=== PATIENT | female | born 1990 | race American Indian/Alaskan Native ===

== ENCOUNTER 2020-03-07 10:11 | Emergency (ER) | payer MEDICAID ==
[2020-03-07 10:22] VITALS: BP 127/80
[2020-03-07 10:49] LABS: Basophils % (Auto) 0.5 % (0.0-1.8); Eosinophils % (Auto) 0.5 % (0.0-4.3); Hematocrit 35.7 % (30.3-42.9); Hemoglobin 11.6 gm/dl (10.1-14.3); Lymphocytes # (Auto) 2.6 K/mm3 (1.2-5.4); Lymphocytes % (Auto) 31.4 % (13.4-35.0); Mean Corpuscular HGB Conc 33 % (30-34); Mean Corpuscular Volume 71 fl (79-97); Monocytes # (Auto) 0.6 K/mm3 (0.0-0.8); Monocytes % (Auto) 7.5 % (0.0-7.3); Platelet Count 220 K/mm3 (140-440); Red Blood Count 5.02 M/mm3 (3.65-5.03); Red Cell Distribution Width 15.7 % (13.2-15.2)
--- NOTE | 2020-03-07 14:08 | Ultrasound Report ---
ULTRASOUND OBSTETRIC INDICATION / CLINICAL INFORMATION: and vaginal bleeding. Clinical Gestational Age (GA): 15 weeks 1 day TECHNIQUE: Transabdominal. Transvaginal COMPARISON: None available. FINDINGS: There is a single intrauterine . Biparietal Diameter = 2.8 cm = 15 weeks, 0 day(s). Head Circumference = 10.6 cm = 15 weeks, 0 day(s). Abdominal Circumference = 8.7 cm = 15 weeks, 0 day(s). Femur Length = 1.7 cm = fifth weeks, 0 day(s). Average Ultrasound Age (AUA) = 15 weeks, 0 day(s). Heart Rate: 152 beats per minute. Estimated Weight in grams (if calculated): Not calculated Estimated Weight Growth Percentile (if calculated): Not calculated Position: cephalic. Cervix: closed. Length in cm (if measured): Not measured Placenta: posterior and free of the os. Amniotic Fluid Volume: Grossly normal Amniotic Fluid Index (BARBARA) in cm (if calculated): Not measured. Maternal Adnexa: No significant abnormality. IMPRESSION: 1. Single, living intrauterine with estimated sonographic age of 15 weeks, 0 day(s). 2. No significant sonographic abnormality. Signer Name: Gloria Ramirez MD Signed: 03/07/2020 2:04 PM Workstation Name: [employer]
--- NOTE | 2020-03-07 14:35 | Emergency Department Report ---
ED Female HPI - General Chief complaint: Vaginal Bleeding Stated complaint: VAG BLEEDING Time Seen by Provider: 03/07/20 12:25 Source: patient Mode of arrival: Ambulatory Limitations: No Limitations - History of Present Illness Initial comments: 30-year-old -Surinamese female presents emergency department complaining of vaginal spotting the entire first trimester reports and increase in intensity of bleeding earlier this morning associated with a vague pelvic cramping but no nausea vomiting, no chest pain palpitations, no fever chills or sweats. MD Complaint: vaginal bleeding Radiation: non-radiating Severity: mild Quality: dull Consistency: constant Improves with: none Worsens with: none Are you Now?: Yes Associated Symptoms: vaginal bleeding. denies: vaginal discharge, abdominal pain, nausea/vomiting, loss of appetite, dysuria, hematuria - Related Data Allergies Allergy/AdvReac Type Severity Reaction Status Date / Time No Known Allergies Allergy Unverified 03/07/20 10:20 ED Review of Systems ROS: Stated complaint: VAG BLEEDING Other details as noted in HPI Comment: All other systems reviewed and negative ED Past Medical Hx - Past Medical History Previous Medical History?: No - Surgical History Past Surgical History?: Yes Additional Surgical History: Fractured right ankle. - Social History Smoking Status: Never Smoker Substance Use Type: None ED Physical Exam - General Limitations: No Limitations General appearance: alert, in no apparent distress - Head Head exam: Present: atraumatic, normocephalic - Eye Eye exam: Present: normal appearance - ENT ENT exam: Present: mucous membranes moist - Neck Neck exam: Present: normal inspection - Respiratory Respiratory exam: Present: normal lung sounds bilaterally. Absent: respiratory distress - Cardiovascular Cardiovascular Exam: Present: regular rate, normal rhythm. Absent: systolic murmur, diastolic murmur, rubs, gallop - GI/Abdominal GI/Abdominal exam: Present: soft, normal bowel sounds - Extremities Exam Extremities exam: Present: normal inspection - Back Exam Back exam: Present: normal inspection - Neurological Exam Neurological exam: Present: alert, oriented X3 - Psychiatric Psychiatric exam: Present: normal affect, normal mood - Skin Skin exam: Present: warm, dry, intact, normal color. Absent: rash ED Course Vital Signs 03/07/20 10:21 Temperature 98.5 F Pulse Rate 114 H Respiratory 18 Rate Blood Pressure 127/80 O2 Sat by Pulse 99 Oximetry ED Medical Decision Making - Lab Data Result diagrams: 03/07/20 10:32 - Radiology Data Radiology results: report reviewed Findings [facility] [address] [place] [address] Ultrasound Report Signed Patient: ROGER MCELROY MR#: [id number] 500 : 1990 Acct:[id number] Age/Sex: 30 / F ADM Date: 03/07/20 Loc: ED Attending Dr: Ordering Physician: PATRICE GALLAGHER Date of Service: 03/07/20 Procedure(s): US OB transvaginal Accession Number(s): [id number] cc: PATRICE GALLAGHER ULTRASOUND OBSTETRIC INDICATION / CLINICAL INFORMATION: and vaginal bleeding. Clinical Gestational Age (GA): 15 weeks 1 day TECHNIQUE: Transabdominal. Transvaginal COMPARISON: None available. FINDINGS: There is a single intrauterine . Biparietal Diameter = 2.8 cm = 15 weeks, 0 day(s). Head Circumference = 10.6 cm = 15 weeks, 0 day(s). Abdominal Circumference = 8.7 cm = 15 weeks, 0 day(s). Femur Length = 1.7 cm = fifth weeks, 0 day(s). Average Ultrasound Age (AUA) = 15 weeks, 0 day(s). Heart Rate: 152 beats per minute. Estimated Weight in grams (if calculated): Not calculated Estimated Weight Growth Percentile (if calculated): Not calculated Position: cephalic. Cervix: closed. Length in cm (if measured): Not measured Placenta: posterior and free of the os. Amniotic Fluid Volume: Grossly normal Amniotic Fluid Index (BARBARA) in cm (if calculated): Not measured. Maternal Adnexa: No significant abnormality. IMPRESSION: 1. Single, living intrauterine with estimated sonographic age of 15 weeks, 0 day(s). 2. No significant sonographic abnormality. Signer Name: Gloria Ramirez MD Signed: 03/07/2020 2:04 PM Workstation Name: [id number] Transcribed By: Dictated By: Gloria Ramirez MD Electronically Authenticated By: Gloria Ramirez MD Signed Date/Time: 03/07/20 1404 DD/ 1400 TD/TT Critical care attestation.: If time is entered above; I have spent that time in minutes in the direct care of this critically ill patient, excluding procedure time. ED Disposition Clinical Impression: Vaginal bleeding during Disposition: DC-01 TO HOME OR SELFCARE Is pt being admited?: No Does the pt Need Aspirin: No Condition: Stable Instructions: Threatened Miscarriage (ED) Referrals: [facility] [Provider Group] - 24 Hours
== END 2020-03-07 15:19 | disposition home or self-care (01) ==
LOC: ED 10:11
DX: O46.92 Antepartum hemorrhage, unspecified, second trimester (principal); Z3A.15 15 weeks gestation of pregnancy
CPT/HCPCS: 36415; 76805; 76817; 84702; 84703; 85025; 86900; 86901

== ENCOUNTER 2020-09-19 16:52 | Emergency (ER) | payer MEDICAID ==
--- NOTE | 2020-09-19 20:06 | Ultrasound Report ---
US OB <= 14 weeks fetus, US OB transvaginal INDICATION / CLINICAL INFORMATION: abdominal pain in . COMPARISON: None available. FINDINGS: Viable intrauterine twin . heart rate of each fetus is 178. Baby A: [place]-rump length 22.6 mm, 19 weeks 0 days. Baby B: [place]-rump length 26.7 mm, 19 weeks 3 days. IMPRESSION: 1. Viable twin 19 week plus intrauterine . Signer Name: Luis Uribe MD Signed: 09/19/2020 8:02 PM Workstation Name: [id number]
[2020-09-19 21:06] LABS: Basophils # (Auto) 0.1 K/mm3 (0.0-0.1); Basophils % (Auto) 0.7 % (0.0-1.8); Eosinophils % (Auto) 0.1 % (0.0-4.3); Hematocrit 35.4 % (30.3-42.9); Hemoglobin 11.4 gm/dl (10.1-14.3); Lymphocytes # (Auto) 1.7 K/mm3 (1.2-5.4); Mean Corpuscular HGB Conc 32 % (30-34); Monocytes # (Auto) 0.4 K/mm3 (0.0-0.8); Monocytes % (Auto) 3.2 % (0.0-7.3); Platelet Count 285 K/mm3 (140-440); Red Blood Count 5.35 M/mm3 (3.65-5.03); Red Cell Distribution Width 19.3 % (13.2-15.2)
[2020-09-19 21:17] LABS: Mean Corpuscular Volume 66 fl (79-97)
[2020-09-19 21:31] LABS: Alanine Aminotransferase 10 units/L (7-56); Albumin 4.3 g/dL (3.9-5); Blood Urea Nitrogen 5 mg/dL (7-17); Calcium 9.3 mg/dL (8.4-10.2); Hemolysis Index 5
[2020-09-19 21:32] LABS: BUN/Creatinine Ratio 8
[2020-09-19] MEDS ORDERED: ONDANSETRON 4 MG ODT TAB ONE (22:43)
[2020-09-19] MEDS ORDERED: ONDANSETRON 4 MG ODT TAB PO ONE (22:48)
[2020-09-19 23:36] LABS: Bilirubin,Urine NEG (Negative); Blood,Urine SM (Negative); Color,Urine Yellow (Yellow); Mucus,Urine 3+ /HPF; Urobilinogen,Urine < 2.0 mg/dL (<2.0)
[2020-09-19 23:41] LABS: Protein,Urine >500 mg/dL (Negative)
[2020-09-20] MEDS ORDERED: SODIUM CHLORIDE 0.9% 1000 ML 1,000 ML IV ONE (01:23)
--- NOTE | 2020-09-20 01:23 | Emergency Department Report ---
ED HPI - General Chief complaint: Nausea/Vomiting/Diarrhea Stated complaint: SEVERE NAUSEA/VOMITTING Time Seen by Provider: 09/19/20 18:30 Source: patient Mode of arrival: Ambulatory Limitations: No Limitations - History of Present Illness Initial comments: 30-year-old female, , currently 9 weeks , presents to the ED with epigastric abdominal pain, nausea and vomiting since yesterday. Patient states she is followed by [facility]. She denies any vaginal bleeding or painful urination. MD Complaint: abdominal pain -: days(s) (1) Location: abdomen Severity: moderate Quality: aching Consistency: constant Improves with: none Worsens with: none Associated symptoms: nausea/vomiting. denies: vaginal bleeding, vaginal discharge Vaginal bleeding: none :: Yes Number of weeks : 9 - Related Data Previous Rx's Medication Instructions Recorded Last Taken Type Promethazine [Phenergan TAB] 25 mg PO Q6HR PRN #20 tab 09/20/20 Unknown Rx Allergies Allergy/AdvReac Type Severity Reaction Status Date / Time No Known Allergies Allergy Unverified 03/07/20 10:20 ED Review of Systems ROS: Stated complaint: SEVERE NAUSEA/VOMITTING Other details as noted in HPI Comment: All other systems reviewed and negative Constitutional: denies: chills, fever Gastrointestinal: abdominal pain, nausea, vomiting ED Past Medical Hx - Past Medical History Previous Medical History?: No - Surgical History Past Surgical History?: Yes Additional Surgical History: Fractured right ankle. - Social History Smoking Status: Never Smoker Substance Use Type: Alcohol - Medications Home Medications: Home Medications Medication Instructions Recorded Confirmed Last Taken Type Promethazine [Phenergan TAB] 25 mg PO Q6HR PRN #20 tab 09/20/20 Unknown Rx ED Physical Exam - General Limitations: No Limitations General appearance: alert, in no apparent distress - Head Head exam: Present: atraumatic, normocephalic - Eye Eye exam: Present: normal appearance, EOMI - ENT ENT exam: Present: mucous membranes moist - Neck Neck exam: Present: normal inspection - Respiratory Respiratory exam: Present: normal lung sounds bilaterally. Absent: respiratory distress - Cardiovascular Cardiovascular Exam: Present: regular rate, normal rhythm - GI/Abdominal GI/Abdominal exam: Present: soft. Absent: distended, tenderness - Extremities Exam Extremities exam: Present: normal inspection - Neurological Exam Neurological exam: Present: alert, oriented X3 - Psychiatric Psychiatric exam: Present: normal affect, normal mood - Skin Skin exam: Present: warm, dry, intact, normal color ED Course Vital Signs 09/19/20 09/20/20 17:09 02:04 Temperature 98.1 F Pulse Rate 72 84 Respiratory 16 19 Rate Blood Pressure 131/80 Blood Pressure 137/84 [Left] O2 Sat by Pulse 100 97 Oximetry - Reevaluation(s) Reevaluation #1: 09/20/20 01:31 Radiology report should read 9 weeks, 3 days gestation, instead of 19 weeks. Worksheet from ultrasound department also measurement from images show that fetuses are 9 weeks. I spoke with radiologist to inform them of this typo. ED Medical Decision Making - Lab Data Result diagrams: 09/19/20 20:33 09/19/20 20:33 - Radiology Data Radiology results: report reviewed, image reviewed - Medical Decision Making 30-year-old female presents to ED with nausea and vomiting in . She also reports some epigastric pain as well. Patient is currently 9 weeks with a twin gestation. Ultrasound shows no abnormalities with the fetuses. Patient given IV fluids, Zofran, Maalox here in the ED. She is currently tolerating p.o. She will be discharged at this time. Outpatient follow-up with OB advised. Return precautions given. - Differential Diagnosis Morning sickness, threatened AB, IUP, ectopic Critical care attestation.: If time is entered above; I have spent that time in minutes in the direct care of this critically ill patient, excluding procedure time. ED Disposition Clinical Impression: Twin gestation in first trimester, 9 weeks gestation of , Nausea/vomiting in Disposition: DC-01 TO HOME OR SELFCARE Is pt being admited?: No Condition: Stable Instructions: Multiple , Morning Sickness, [id number] Prescriptions: Promethazine [Phenergan TAB] 25 mg PO Q6HR PRN #20 tab PRN Reason: Nausea Referrals: PRIMARY CARE, [Primary Care Provider] - 3-5 Days
[2020-09-20] MEDS ORDERED: ONDANSETRON 4 MG/2 ML INJ IV ONE (01:26)
[2020-09-20] MEDS ORDERED: ONDANSETRON 4 MG/2 ML INJ ONE (01:26)
[2020-09-20 02:04] VITALS: BP 137/84
[2020-09-20] MEDS ORDERED: ALUM-MAG HYDROXIDE-SIMETHICONE 200-200-20MG/5ML ORAL LIQD 30 ML PO ONE (02:16)
--- NOTE | 2020-09-21 07:01 | Ultrasound Report ---
ULTRASOUND OBSTETRIC Indication: ABD PAIN Findings: Between gestation. There is cardiac activity in both fetus a and B with heart rate of christian roximately 178 bpm. [place]-rump length fetus a is 2.26 cm correlating to a 9 week gestation. [place]-rump length fetus B is 2.67 cm correlating to a 9 week 3 day gestation. Impression: There is a viable twin intrauterine . Signer Name: Ravindra Murray MD Signed: 09/21/2020 6:57 AM Workstation Name: [id number]
== END 2020-09-20 03:29 | disposition home or self-care (01) ==
LOC: ED 16:52
DX: O21.8 Other vomiting complicating pregnancy (principal); O30.001 Twin pregnancy, unspecified number of placenta and unspecified number of amniotic sacs, first trimester; Z3A.09 9 weeks gestation of pregnancy; Z98.890 Other specified postprocedural states; Z79.899 Other long term (current) drug therapy
CPT/HCPCS: 36415; 76801; 76802; 76817; 80053; 81001; 83690; 84702; 85025; 86900; 86901; 96361; 96374; 99284; J2405; J7030; Q0162

== ENCOUNTER 2021-03-12 02:35 | Inpatient (IN) | payer MEDICAID ==
[2021-03-12] MEDS ORDERED: BETAMET ACET/BETAMET NA PH 6 MG/ML INJ 5 ML MDV IM ONE (03:21)
[2021-03-12] MEDS ORDERED: LACTATED RINGERS 1,000 ML IV SCH (03:30)
[2021-03-12] MEDS ORDERED: ePHEDrine SULFATE 50 MG/1 ML INJ IV PRN (04:00)
[2021-03-12] MEDS ORDERED: fentaNYL 100 MCG/2 ML INJ IV PRN (04:00)
[2021-03-12] MEDS ORDERED: LOPERAMIDE 2 MG CAP PO PRN (04:00)
[2021-03-12] MEDS ORDERED: OXYTOCIN 10 UNIT/1 ML INJ IM PRN (04:00)
[2021-03-12] MEDS ORDERED: MINERAL OIL 30 ML ORAL LIQD PO PRN (04:00)
[2021-03-12] MEDS ORDERED: OXYTOCIN DRIP 30 UNITS/500 ML BAG IV SCH ×2 (04:00→07:00)
[2021-03-12] MEDS ORDERED: TERBUTALINE 1 MG/1 ML INJ SUB-Q PRN (04:00)
[2021-03-12] MEDS ORDERED: BUTORPHANOL 2 MG/1 ML INJ IV PRN (04:00)
[2021-03-12] MEDS ORDERED: ACETAMINOPHEN 325 MG TAB PO PRN (04:00)
[2021-03-12] MEDS ORDERED: LIDOCAINE (2%) 20 MG/1 ML VIAL 20 ML MDV INFILTRATI ONE (04:00)
[2021-03-12] MEDS ORDERED: NALOXONE 0.4 MG/1 ML INJ IV PRN (04:00)
[2021-03-12] MEDS ORDERED: CARBOPROST TROMETHAMINE 250 MCG/1 ML INJ IM PRN (04:00)
[2021-03-12] MEDS ORDERED: AMPICILLIN/NS 2 GM/100 ML 2 GM/100 ML BAG IV ONE (04:00)
[2021-03-12] MEDS ORDERED: miSOPROStol 200 MCG TAB PR PRN (04:00)
[2021-03-12] MEDS ORDERED: METHYLERGONOVINE MALEATE 0.2 MG/ML VIAL IM PRN (04:00)
[2021-03-12] MEDS ORDERED: ONDANSETRON 4 MG/2 ML INJ IV PRN ×2 (04:00→05:15)
[2021-03-12 04:19] LABS: Basophils % (Auto) 0.4 % (0.0-1.8); Eosinophils % (Auto) 0.3 % (0.0-4.3); Hematocrit 31.7 % (30.3-42.9); Hemoglobin 10.2 gm/dl (10.1-14.3); Lymphocytes # (Auto) 2.7 K/mm3 (1.2-5.4); Lymphocytes % (Auto) 33.8 % (13.4-35.0); Mean Corpuscular HGB Conc 32 % (30-34); Monocytes # (Auto) 0.8 K/mm3 (0.0-0.8); Monocytes % (Auto) 9.4 % (0.0-7.3)
[2021-03-12 04:21] LABS: Mean Corpuscular Volume 69 fl (79-97); Platelet Count 203 K/mm3 (140-440)
--- NOTE | 2021-03-12 04:23 | History and Physical Report ---
History of Present Illness Date of examination: 03/12/21 Date of admission: 03/12/21 Chief complaint: contractions History of present illness: Pt is a 31 year old ANGELA 04/19/21 with a Di-Di gestation at 34w4d who presents with regular painful contractions and advanced cervical dilation of 6 cm. She denies leakage of fluid or vaginal bleeding. 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 Her GBS status is unknown. Pt reports she has a course of steroids at 27 wks. Past History Past Medical History: no pertinent history Past Surgical History: other (ankle surgery ) Family/Genetic History: none Social history: no significant social history - Obstetrical History Expected Date of Delivery: 04/19/21 Actual Gestation: 34 Week(s) 4 Day(s) : 5 Para: 2 Hx # Term Pregnancies: 1 Number of Pregnancies: 1 Spontaneous Abortions: 2 Induced : 0 Number of Living Children: 1 Medications and Allergies Allergies Allergy/AdvReac Type Severity Reaction Status Date / Time No Known Allergies Allergy Unverified 03/07/20 10:20 Home Medications Medication Instructions Recorded Confirmed Last Taken Type Promethazine [Phenergan TAB] 25 mg PO Q6HR PRN #20 tab 09/20/20 Unknown Rx Active Meds: Active Medications Acetaminophen (Acetaminophen 325 Mg Tab) 650 mg PO Q4H PRN PRN Reason: Pain, Mild (1-3) Butorphanol Tartrate (Butorphanol 2 Mg/1 Ml Inj) 1 mg IV Q2H PRN PRN Reason: Pain, Moderate(4-6) LABOR PAIN Carboprost Tromethamine (Carboprost Tromethamine 250 Mcg/1 Ml Inj) 250 mcg IM ONCE PRN PRN Reason: Uterine Bleeding Ephedrine Sulfate (Ephedrine Sulfate 50 Mg/1 Ml Inj) 10 mg IV Q2M PRN PRN Reason: Hypotension Fentanyl (Fentanyl 100 Mcg/2 Ml Inj) 100 mcg IV Q2H PRN PRN Reason: Pain,Severe (7-10) LABOR PAIN Lactated Ringer's (Lactated Ringers) 1,000 mls @ 125 mls/hr IV DIRECT ROBERTO CARLOS Oxytocin/Sodium Chloride (Pitocin/Ns 30 Unit/500ml) 30 units in 500 mls @ 2 ml s/hr IV TITR ROBERTO CARLOS; Protocol Lactated Ringer's (Lactated Ringers) 1,000 mls @ 125 mls/hr IV DIRECT ROBERTO CARLOS Oxytocin/Sodium Chloride (Pitocin/Ns 30 Unit/500ml) 30 units in 500 mls @ 40 mls/hr IV TITR ROBERTO CARLOS; Protocol Ampicillin Sodium (Ampicillin/Ns 2 Gm/100 Ml) 2 gm in 100 mls @ 100 mls/hr IV ONCE ONE; Protocol Stop: 03/12/21 04:59 Ampicillin Sodium (Ampicillin/Ns 1 Gm/50 Ml) 1 gm in 50 mls @ 100 mls/hr IV Q4H ROBERTO CARLOS; Protocol Lidocaine (Lidocaine (2%) 20 Mg/1 Ml Vial 20 Ml Mdv) 20 ml INFILTRATI ONCE ONE Stop: 03/12/21 04:01 Loperamide HCl (Loperamide 2 Mg Cap) 2 mg PO ONCE PRN PRN Reason: give with Hemabate Methylergonovine Maleate (Methylergonovine Maleate 0.2 Mg/Ml Vial) 0.2 mg IM ONCE PRN PRN Reason: Uterine Bleeding Mineral Oil (Mineral Oil 30 Ml Oral Liqd) 30 ml PO QHS PRN PRN Reason: Constipation Misoprostol (Misoprostol 200 Mcg Tab) 800 mcg CA ONCE PRN PRN Reason: Uterine Bleeding Naloxone HCl (Naloxone 0.4 Mg/1 Ml Inj) 0.1 mg IV Q2MIN PRN PRN Reason: Res Rate </= 8 or 02 SAT < 92% Ondansetron HCl (Ondansetron 4 Mg/2 Ml Inj) 4 mg IV Q8H PRN PRN Reason: Nausea And Vomiting Oxytocin (Oxytocin 10 Unit/1 Ml Inj) 10 unit IM ONCE PRN PRN Reason: Uterine Bleeding Terbutaline Sulfate (Terbutaline 1 Mg/1 Ml Inj) 0.25 mg SUB-Q ONCE PRN PRN Reason: Hyperstimulation/Hypertonicity Review of Systems All systems: negative - Vital Signs Vital signs: Vital Signs Pulse BP 79 137/95 03/12/21 03:10 03/12/21 03:10 Temp Pulse Resp BP Pulse Ox 98.7 F 79 137/95 03/12/21 03:11 03/12/21 03:10 03/12/21 03:10 - Physical Exam Breasts: Positive: deferred Abdomen: Positive: soft (gravid ) Uterus: Positive: enlarged (gravid ) Extremities: Positive: normal - Obstetrical FHR: auscultation normal Cervical Dilatation: 6 (per RN ) Uterine Contraction Pattern: Regular Uterine Tone Measurement Phase: Resting Uterine Contraction Intensity: Strong/Firm Results Result Diagrams: 03/12/21 04:03 All other labs normal. Assessment and Plan A: Di-Di Twin IUP at 34w4d Active Labor IUGR of both fetuses Alpha thalassemia carrier Anemia Hyperemesis Glucose intolerance with normal 3 hr GTT H/o chronic placental abruption in first and second trimester with 22 wk delivery Close interval pregnancies GBS status unknown P: Admit to labor and delivery Betamethasone 12 mg IM x 1 Pt declines delivery at this time, attempt trial of labor Ampicllin for GBS prophylaxis Routine intrapartum care
[2021-03-12] MEDS ORDERED: FAMOTIDINE 20 MG/2 ML INJ IV SCH ×2 (04:26→10:00)
--- NOTE | 2021-03-12 04:40 | Ultrasound Report ---
ULTRASOUND OBSTETRIC LIMITED INDICATION / CLINICAL INFORMATION: PRESENTATION. TECHNIQUE: Transabdominal. COMPARISON: 09/19/2020. FINDINGS: Examination not tailored to evaluate detailed anatomy. Baby A in cephalic presentation. heart rate measures 125 bpm. Baby B in transverse, head to maternal right presentation. heart rate measures 129 bpm. IMPRESSION: Viable twin , as above. Signer Name: Alin Montez MD Signed: 03/12/2021 4:35 AM Workstation Name: [id number]
[2021-03-12] MEDS ORDERED: fentaNYL-BUPIV 2 MCG/ML-0.125% 200 MCG/100 ML BAG EPIDURAL ONE (05:05)
[2021-03-12] MEDS ORDERED: NalbUPHINE 10 MG/1 ML INJ IV PRN (05:15)
[2021-03-12] MEDS ORDERED: NALOXONE 2 MG/2 ML INJ IV PRN (05:15)
[2021-03-12] MEDS ORDERED: LACTATED RINGERS 250 ML IV SOLN IV ONE (05:15)
[2021-03-12] MEDS ORDERED: diphenhydrAMINE 50 MG/ML VIAL IV PRN (05:15)
--- NOTE | 2021-03-12 05:45 | Anesthesia Consultation ---
Anesthesia Consult and Med Hx Date of service: 03/12/21 - Airway Anesthetic Teeth Evaluation: Good ROM Head & Neck: Adequate Mental/Hyoid Distance: Adequate Mallampati Class: Class II Intubation Access Assessment: Probably Good - Pulmonary Exam CTA: Yes - Cardiac Exam Cardiac Exam: RRR - Pre-Operative Health Status ASA Pre-Surgery Classification: ASA2 Proposed Anesthetic Plan: Epidural - Pulmonary Hx Smoking: No Hx Asthma: No COPD: No Hx Pneumonia: No Hx Sleep Apnea: No - Cardiovascular System Hx Hypertension: No Hx Heart Attack/AMI: No Hx Angina: No - Central Nervous System Hx Seizures: No Hx Psychiatric Problems: No - Gastrointestinal Hx Gastroesophageal Reflux Disease: No - Endocrine Hx Renal Disease: No Hx End Stage Renal Disease: No Hx Liver Disease: No Hx Insulin Dependent Diabetes: No Hx Non-Insulin Dependent Diabetes: No Hx Hypothyroidism: No Hx Hyperthyroidism: No - Hematic Hx Anemia: No Hx Sickle Cell Disease: No - Other Systems Hx Alcohol Use: Yes (Socially)
--- NOTE | 2021-03-12 05:46 | Progress Note ---
Labor Epidural - Labor Epidural Start Time: 05:20 Stop Time: 05:40 Performed by:: RUDI FOREMAN Procedure: Patient is requesting epidural for labor and pain. H&P, labs were reviewed. Patient IDed, H&P reviewed, all questions and concerns were answered, and consent was signed. Timeout was performed at bedside. Patient in sitting position. Sterile prep and drape was performed. 3ml of 1% lidocaine skin wheal at L[3]- L [4]. 18-gauge [employer] epidural needle was advanced to loss of resistance with air technique 7cm. Negative CSF negative blood. Epidural catheter advanced to [12] centimeters. [negative] Aspiration [negative] test dose. Sterile dressing applied. Patient tolerated procedure.
[2021-03-12] MEDS ORDERED: fentaNYL-BUPIV 2 MCG/ML-0.125% 200 MCG/100 ML BAG EPIDURAL SCH (06:00)
[2021-03-12] MEDS: ePHEDrine SULFATE 50 MG/1 ML INJ IV PRN ×2 (06:07→07:54)
[2021-03-12] MEDS: LACTATED RINGERS 1,000 ML IV SCH ×2 (06:30→08:37)
[2021-03-12] MEDS ORDERED: AMPICILLIN/NS 1 GM/50 ML 1 GM/50 ML BAG IV SCH (08:00)
[2021-03-12] MEDS ORDERED: BICITRA ORAL LIQD 30ML PO NR (09:05)
[2021-03-12] MEDS ORDERED: METOCLOPRAMIDE 10 MG/2 ML INJ IV NR (09:05)
[2021-03-12] MEDS ORDERED: ceFAZolin/Water 2 GM/20 ML 2 GM/20 ML SYRINGE IV ONE (09:10)
--- NOTE | 2021-03-12 09:25 | Anesthesia Day of Surgery ---
Anesthesia Day of Surgery - Day of Surgery Patient Examined: Yes Patient H&P Reviewed: Yes Patient is NPO: Yes Beta Blockers: No Cardiac Clearance: No Pulmonary Clearance: No Zachariah's Test: N/A
[2021-03-12] MEDS ORDERED: ceFAZolin/Water 2 GM/20 ML 2 GM/20 ML SYRINGE IV NR (09:30)
[2021-03-12] MEDS ORDERED: SUCCINYLCHOLINE CHLORIDE 200 MG/10 ML INJ MDV ONE (11:02)
[2021-03-12] MEDS ORDERED: propofoL 200 MG/20 ML VIAL IV ONE (11:02)
[2021-03-12] MEDS ORDERED: ceFAZolin/STERILE WATER 2 GM/20 ML SYRINGE IV ONE (11:05)
[2021-03-12] MEDS ORDERED: OXYTOCIN 10 UNIT/1 ML INJ ONE (11:15)
[2021-03-12] MEDS ORDERED: LIDOCAINE MPF (2%) 20 MG/1 ML VIAL 5 ML ONE (11:15)
[2021-03-12] MEDS ORDERED: BUPIVACAINE/PF (0.25%) 2.5 MG/ML 30 ML VIAL INFILTRATI ONE (11:35)
[2021-03-12] MEDS ORDERED: KETOROLAC 30 MG/1 ML INJ ONE (11:35)
[2021-03-12] MEDS ORDERED: dexAMETHasone 20 MG/5 ML VIAL ONE (11:35)
[2021-03-12] MEDS ORDERED: ONDANSETRON 4 MG/2 ML INJ ONE (11:35)
--- NOTE | 2021-03-12 11:48 | Procedure Note ---
OB Delivery Note - Delivery Date of Delivery: 03/12/21 Surgeon: ROMEO STANLEY Estimated blood loss: other (total ebl 1560) - Vaginal Delivery presentation: vertex Delivery position: OA Intrapartum events: labor-<37 weeks Delivery induction: AROM Delivery augmentation: pitocin Delivery monitor: external FHT, external uterine Route of delivery: Delivery cord: 3 umbilical vessels Episiotomy: none Delivery laceration: none - Section Preop diagnosis: other malpresentation Postop diagnosis: same section procedure: section, primary low transverse Disposition: PACU Complications: none - A at 1 minute: 8 at 5 minutes: 9 (Weight 4 pounds 5 ounces) Gender: Male B at 1 minute: 2 at 5 minutes: 8 (weight 1.86kg) Gender: Female
--- NOTE | 2021-03-12 11:48 | Operative Report ---
Operative Report Operative Report: Date of surgery: March 12, 2021 Preoperative diagnosis: Twin gestation at 34+4 weeks; labor; malpresen tation of twin B Postoperative diagnosis: Same as above Procedure: Spontaneous vaginal delivery; primary delivery Surgeon: Ivonne Trammell M.D. Anesthesia: Epidural; General endotracheal anesthesia Estimated blood loss:1560ml Findings: Liveborn male infant in vertex presentation with Apgars of 8 and 9 weight 4 pounds 5 ounces; liveborn female in transverse presentation with Apgars of 2 and 8 weight 1.86kg Indications: 31-year-old -1-2-1 at 34+4 weeks who presents to labor and delivery with a history complicated by twin gestation and labor. The patient had advanced cervical dilatation of 6 cm at presentation. Procedure: The patient was taken to the operating room in preparation for a vaginal delivery. Twin A was determined to be in vertex presentation. Amniotomy was performed with evidence of clear fluid. The patient pushed to deliver a live- born male with Apgars of 8 and 9 weight 4 pounds 5 ounces. After delivery of the head the shoulders delivered without difficulty. The was bulb suction. The cord was clamped and cut and the was passed to pediatrics in attendance. An ultrasound was performed that confirmed that the head of twin B was on the maternal left side. Twin B was in transverse presentation. Pitocin was initiated. Labor ensued until it was determined that twin B was in footling breech presentation. Amniotomy was performed with evidence of clear fluid. Upon vaginal examination was found that a foot and hand were attempting to present simultaneously. The patient pushed without significant progression. The decision was made to proceed with an emergent delivery. The patient received general endotracheal anesthesia secondary to her epidural not being adequate for surgical procedure. She was prepped with Betadine and draped in a normal sterile fashion. A Pfannenstiel skin incision was made down to layer the fascia which was nicked in the midline extended laterally with the Bovie cautery. The superior aspect of the rectus fascia was grasped with [place] clamps x2 and the rectus muscles off sharply. This was done in inferior fashion as well. The rectus muscle midline and peritoneum entered bluntly. An Huber retractor was then inserted. A bladder blade was placed. The vesicouterine peritoneum was then entered sharply with Metzenbaum scissors. A bladder flap was created digitally. A low transverse uterine incision was then made and extended digitally. The feet were delivered through the incision with fundal pressure. Secondary to the lower uterine segment becoming contractile created difficulty with delivery of the head. The incision had to be extended vertically approximately 2 cm to facilitate delivery of the head. The cord was clamped and cut x2 and infant was passed off to pediatrics. The placenta was then manually extracted. The uterus was then exteriorized and cleared of clots and debris. The uterine incision was then closed in a running locked fashion with 0 Vicryl additional imbricating stitch was applied for 3 layer closure. The posterior cul-de-sac was then copiously irrigated. The uterus was replaced back into the abdomen and pelvis were the gutters were then irrigated. The Huber retractor was then removed. The peritoneum was then reapproximated with 3-0 Vicryl incorporating the rectus muscle. The fascia was then closed with 0 Vicryl in a running fashion. The skin was then reapproximated with 3-0 Monocryl on a Sam needle subcuticular fashion. Steri-Strips to place across the incision and a Crede procedures performed at the end of the surgery. A pressure dressing was applied to the incision. The surgery productive of a liveborn male that was delivered vaginally at 0956 with Apgars of 8 and 9 weight 4 pounds 5 ounces and a female that was delivered via at 1109 in breech presentation with Apgars of 2 and 8 weight 1.86kg. The patient was taken to the recovery room in stable condition. All sponge laps and needle counts correct x2.
--- NOTE | 2021-03-12 12:56 | Progress Note ---
Regional Anesthesia Block - Regional Anesthesia Block Start Time: 12:05 Stop Time: 12:15 Performed By:: RUDI FOREMAN (Soni DANIELS) Procedure: Patient consented for TAP block for post surgical pain management. Patient identified, monitors placed, and time out performed. Mid axillary TAP identified bilaterally via ultrasound. Skin prepped bilaterally with [chlorhexidine] and [20g stimuplex] needle advanced to the TAP. 30ml [Marcaine 0.25% with 25mcg Precedex and Decadron 5mg] injected under ultrasound guidance on the [left] side. 30ml [Marcaine 0.25% with 25mcg Precedex and Decadron 5mg] injected under ultrasound guidance on the [right] side. Negative aspiration every 5mL, Patient tolerated the procedure well. No apparent complications seen.
[2021-03-12] MEDS ORDERED: KETOROLAC 30 MG/1 ML INJ IV PRN (15:52)
[2021-03-12] MEDS ORDERED: D5W/LACTATED RINGERS 1,000 ML IV SCH (17:00)
[2021-03-12] MEDS: oxyCODONE /ACETAMINOPHEN 5-325MG TAB PO PRN (18:12)
[2021-03-13] MEDS: oxyCODONE /ACETAMINOPHEN 5-325MG TAB PO PRN ×3 (06:33→23:30)
[2021-03-13 10:13] LABS: Hematocrit 22.9 % (30.3-42.9); Hemoglobin 7.3 gm/dl (10.1-14.3)
--- NOTE | 2021-03-13 11:35 | Progress Note ---
Assessment and Plan - Patient Problems (1) delivery delivered Current Visit: Yes Status: Acute Plan to address problem: Routine postoperative care (2) Acute blood loss anemia Current Visit: Yes Status: Acute Subjective - Subjective Date of service: 03/13/21 Interval history: The patient reports having postoperative pain. She states having positive flatus and tolerating clear diet. Patient reports: appetite normal, voiding normally : in NICU Objective - Vital Signs Latest vital signs: Vital Signs Temp Pulse Resp BP BP Pulse Ox 03/13/21 08:42 98.2 F 68 17 100/55 95 03/13/21 06:33 18 03/13/21 04:53 98.0 F 84 18 114/65 96 03/13/21 02:20 99.1 F 74 20 140/87 99 03/12/21 21:14 99.0 F 76 18 120/77 97 03/12/21 15:55 99.3 F 80 20 126/80 98 03/12/21 13:20 98 F 85 19 134/69 100 03/12/21 13:00 97.9 F 74 18 122/66 99 03/12/21 12:45 97.8 F 73 18 130/76 100 03/12/21 12:30 97.8 F 79 18 118/80 99 03/12/21 12:15 97.5 F L 72 18 118/69 99 03/12/21 12:10 97.5 F L 73 18 121/63 100 03/12/21 12:05 97.5 F L 77 14 120/68 100 03/12/21 12:00 97.5 F L 80 14 122/62 99 03/12/21 11:55 97.5 F L 82 14 105/70 100 Intake and Output 03/12/21 03/13/21 03/13/21 22:59 06:59 14:59 Intake Total 560 300 Output Total 950 1500 Balance -390 -1200 Intake: Oral 560 200 Intake, Free Water 100 Output: Urine 950 1500 Indwelling Catheter 750 600 Uretheral ([place]) 200 600 Void 300 Other: Total, Intake Amount 200 200 Total, Output Amount 200 300 - Exam Incision: Present: dressed - Labs Labs: Abnormal lab results 03/13/21 Range/Units 09:21 Hgb 7.3 L (10.1-14.3) gm/dl Hct 22.9 L D (30.3-42.9) %
--- NOTE | 2021-03-13 16:13 | Post Anesthesia Evaluation ---
- Post Anesthesia Evaluation Patient Participated: Yes Airway Patent: Yes Stable Respiratory Function: Yes Nausea/Vomiting: No Temp > 96.8F: Yes Pain Manageable: Yes Adequeate Hydration: Yes Anesthesia Complications: No Block Receding Appropriately: Yes Patient on Ventilator: No
--- NOTE | 2021-03-14 11:28 | Progress Note ---
Assessment and Plan - Patient Problems (1) delivery delivered Current Visit: Yes Status: Acute Plan to address problem: Patient doing well Discharge home tomorrow (2) Acute blood loss anemia Current Visit: Yes Status: Acute Subjective - Subjective Date of service: 03/14/21 Interval history: The patient reports feeling better today. She is tolerating regular diet and her pain is better controlled. Patient reports: appetite normal, voiding normally, pain well controlled : in NICU Objective - Vital Signs Latest vital signs: Vital Signs Temp Pulse Resp BP BP Pulse Ox 03/14/21 10:26 98.3 F 88 17 123/65 98 03/14/21 00:30 98.6 F 75 16 115/78 03/13/21 23:30 18 Intake and Output 03/13/21 03/14/21 03/14/21 22:59 06:59 14:59 Other: # Voids Void 1 - Exam Uterus: Present: normal, firm
--- NOTE | 2021-03-14 11:30 | Discharge Summary ---
Providers - Providers Date of Admission: 03/12/21 04:03 Date of discharge: 03/15/21 Attending physician: MIRIAM BAUM Primary care physician: MIRIAM BAUM Hospitalization Reason for admission: labor, other (Twin gestation) Delivery: , Procedure: section, primary low transverse Discharge diagnosis: delivery baby: twins Hospital course: The patient was admitted at 34 weeks in labor. She progressed to complete complete and underwent a vaginal delivery of twin A and a subsequent for twin B secondary to malpresentation. Please see operative note for details of surgery. Her postoperative course was uneventful. Condition at discharge: Good Disposition: [id number] TO HOME OR SELFCARE - Discharge Diagnoses (1) delivery delivered Status: Acute (2) Acute blood loss anemia Status: Acute Plan - Discharge Medications Prescriptions: Docusate Sodium [Colace] 100 mg PO BID PRN #30 capsule PRN Reason: Constipation Ferrous Sulfate [Feosol 325 MG tab] 325 mg PO BID #60 tablet Ibuprofen [Motrin] 800 mg PO Q8HR PRN #60 tablet PRN Reason: Pain , Severe (7-10) oxyCODONE /ACETAMINOPHEN [Percocet 5/325] 1 tab PO Q6HR PRN #30 tablet PRN Reason: Pain - Provider Discharge Summary Activity: no sex for 6 weeks, no heavy lifting 4 weeks, no strenuous exercise Diet: routine Instructions: routine Additional instructions: [] Smoking cessation referral if applicable(refer to patient education folder for contact #) [] Refer to [facility] Booklet Call your doctor immediately for: * Fever > 100.5 * Heavy vaginal bleeding ( >1 pad per hour) * Severe persistent headache * Shortness of breath * Reddened, hot, painful area to leg or breast * Drainage or odor from incision. * Keep incision clean and dry at all times and follow doctor's instructions regarding bathing/showering Schedule incision check in 2 weeks - Follow up plan
[2021-03-14] MEDS: oxyCODONE /ACETAMINOPHEN 5-325MG TAB PO PRN ×2 (16:07→23:50)
[2021-03-15 10:22] VITALS: BP 137/82
== END 2021-03-15 11:00 | disposition home or self-care (01) | DRG 765 ==
LOC: TRG 02:35 → APU 02:37 → TRG 04:00 → LD 04:03 → OB 13:42
PROVIDERS: ADMIT Obstetrics & Gynecology; ATTEND Obstetrics & Gynecology
PROC: 10D00Z1 Extraction of Products of Conception, Low, Open Approach (ICD-10-PCS; principal; 2021-03-12)
PROC: 10907ZC Drainage of Amniotic Fluid, Therapeutic from Products of Conception, Via Natural or Artificial Opening (ICD-10-PCS; 2021-03-12)
PROC: 3E0T3BZ Introduction of Anesthetic Agent into Peripheral Nerves and Plexi, Percutaneous Approach (ICD-10-PCS; 2021-03-12)
DX: O30.043 Twin pregnancy, dichorionic/diamniotic, third trimester (principal); O60.14X0 Preterm labor third trimester with preterm delivery third trimester, not applicable or unspecified; D62 Acute posthemorrhagic anemia; Z3A.34 34 weeks gestation of pregnancy; Z37.2 Twins, both liveborn; O36.5931 Maternal care for other known or suspected poor fetal growth, third trimester, fetus 1; O36.5932 Maternal care for other known or suspected poor fetal growth, third trimester, fetus 2; O99.02 Anemia complicating childbirth; D56.3 Thalassemia minor; E74.39 Other disorders of intestinal carbohydrate absorption; O99.284 Endocrine, nutritional and metabolic diseases complicating childbirth; O32.8XX2 Maternal care for other malpresentation of fetus, fetus 2; Z20.822 Contact with and (suspected) exposure to COVID-19
CPT/HCPCS: 36415; 59025; 76815; 85014; 85018; 85025; 86592; 86850; 86900; 86901; 88307; 96360; 96372; G0378; J0290; J0330; J0690; J0702; J1100; J1885; J2405; J2590; J2704; J2765; J7120; J7121; U0003